=== PATIENT | male | born 1970 | race Caucasian/White ===

== ENCOUNTER 2018-03-22 05:40 | Day surgery (SDC) | payer OTHER ==
[~2018-03-22] VITALS: Ht 188 cm; Wt 102.1 kg
[~2018-03-22 05:40] MED LIST: AMITRIPTYLINE H50 MG PO; CIPRO500 MG PO; CLONIDINE HCL0.2 MG PO; DUCODYL5 MG PO; LISINOPRIL20 MG PO; LISINOPRIL5 MG PO; NASAL SPRAY30 M1 NS; OMEPRAZOLE20 MG PO; QUETIAPINE FUM200 MG PO; QUETIAPINE FUM400 MG PO; SEROQUEL200 MG PO; SERTRALINE HCL100 MG PO; TRAZODONE HCL150 MG PO; VENLAFAXINE HCL75 MG PO
[2018-03-22] MEDS ORDERED: METOPROLOL SUCC25 MG PO (05:52)
[2018-03-22] MEDS ORDERED: COL-RITE250 MG PO (05:53)
--- NOTE | 2018-03-22 08:34 | NUR ---
03/22/18 0834 Yoly Morales 0830 PATIENT ARRIVES TO PACU UNRESPONSIVE TO PAIN OR VERBAL STIMULI. RESP EVEN AND UNLABORED. ORAL AIRWAY IN PLACE. MASK AT 10 LITERS, DECREASED TO 6 LITERS ON ARRIVAL. [facility] OFFICERS X2 AT BEDSIDE.
--- NOTE | 2018-03-22 11:45 | NUR ---
PT UP TO BR W/RN STANDBY. PT AMBULATES SLOW, WITH A LIMP AND TOLERATES THAT WELL. ICED WATER GIVEN. OFFICERS @ BS.
[2018-03-22] MEDS ORDERED: ULTRAM50 MG PO (12:12)
--- NOTE | 2018-03-22 12:19 | NUR ---
OFFICER TO THE NURSE'S STATION REPORTING THE PATIENT IS STARTING TO HAVE PAIN. CRACKERS AND JELLO GIVEN AND PT TOLERATES THOSE WELL. PRN GIVEN.
--- NOTE | 2018-03-22 13:23 | NUR ---
LE 1240: DC INSTRUCTIONS GIVEN TO PATIENT AND HE VERBALIZES UNDERSTANDING. PT DRESSING SELF IN PRESENCE OF OFFICERS AND IS DC TO [facility]. ATTEMPT MADE TO CALL REPORT TO [facility] AND MESSAGE IS LEFT.
--- NOTE | 2018-03-22 13:34 | NUR ---
CALL REPORT GIVEN TO [facility] NURSE AND HER QUESTIONS ARE ANSWERED.
--- NOTE | 2018-03-27 07:19 | OR ---
[facility] [address], [place] [address] Signed DATE OF OPERATION: 03/22/2018 SURGEON: Missy Ricks MD PREOPERATIVE DIAGNOSIS: Bunion deformity, right foot. POSTOPERATIVE DIAGNOSIS: Bunion deformity, right foot. PROCEDURE: Chevron bunionectomy, right. ANESTHESIA: General. SPECIMENS AND COMPLICATIONS: There were no specimens or complications. TOURNIQUET TIME: Under an hour. WHAT WAS DONE: The patient was taken to the operating room. After anesthesia was induced and airway secured, the patient was positioned, prepped and draped in a routine sterile fashion. The leg was exsanguinated with elevation. Pneumatic tourniquet was inflated to 300 mmHg pressure about the thigh. We then made a dorsal medial incision to the medial aspect of the extensor hallucis longus. Skin was divided sharply. A small medial flap was created taking care to preserve the dorsal cutaneous nerves. A dorsal medial capsulotomy was then performed and the capsule was stripped off the medial eminence. The medial eminence was then resected in line with the sagittal sulcus and removed. We then did a standard chevron osteotomy with the apex in the central portion of the head. We then displaced the capital fragment laterally about 6 mm, fixed it with two PDS pins. The medial prominence created by the lateral shift of the capital fragment was then removed with a small oscillating saw. We were then able to place some drill holes in the metatarsal neck. We freed up the capsule from the overlying skin medially and advanced the capsule to maintain our correction with interrupted sutures of 2-0 FiberWire. We then closed the capsule with a 2-0 FiberWire and irrigated the wound one last time. Skin was closed with 4-0 nylon and a sterile spica dressing was applied. The patient was awakened and taken Electronically Signed By: MISSY RICKS MD 03/27/18 0719 PATIENT NAME: EZIO OLIVEIRA OPERATIVE REPORT DATE OF : 74 REPORT #: [id number] PHYSICIAN: MISSY RICKS MD PCP: ROSE ESPAÑA MD REPORT IS CONFIDENTIAL AND NOT TO BE RELEASED WITHOUT AUTHORIZATION [facility] [address] [place] [address] [place] [address] Signed to the recovery room and arrived in stable condition. Counts were correct and antibiotic protocols were all followed. Missy Ricks MD WFB/MODL /[id number] Copies: ~ Electronically Signed By: MISSY RICKS MD 03/27/18 0719 PATIENT NAME: EZIO OLIVEIRA OPERATIVE REPORT DATE OF : 74 REPORT #: [id number] PHYSICIAN: MISSY RICKS MD PCP: ROSE ESPAÑA MD REPORT IS CONFIDENTIAL AND NOT TO BE RELEASED WITHOUT AUTHORIZATION
== END 2018-03-22 12:50 | disposition home or self-care (01) ==
LOC: DS 05:40 → OPS 05:40 → DS 06:45 → OPS 06:45
PROVIDERS: Orthopaedic Surgery
PROC: 0QSN04Z Reposition Right Metatarsal with Internal Fixation Device, Open Approach (ICD-10-PCS; principal; 2018-03-22 06:45)
DX: M21.611 Bunion of right foot (principal); K21.9 Gastro-esophageal reflux disease without esophagitis; I10 Essential (primary) hypertension; Z87.891 Personal history of nicotine dependence; Z79.899 Other long term (current) drug therapy
CPT/HCPCS: 01480; 62322; 64445; 76942; J0461; J0690; J0735; J1100; J1885; J2250; J2310; J2405; J2704; J2765; J3010; J7120